=== PATIENT | female | born 1955 | race Caucasian/White ===

== ENCOUNTER → 2016-04-15 | Outpatient (REF) | payer OTHER | LOC: M SFHCWAGY 10:34 | PROVIDERS: ATTEND Nurse Practitioner Family | DX: Z12.72 Encounter for screening for malignant neoplasm of vagina (principal); R23.4 Changes in skin texture ==

== ENCOUNTER → 2016-04-15 | Outpatient (CLI) | payer OTHER ==
--- NOTE | 2016-04-15 12:37 | REPMRS ---
Patient History The patient states she had a clinical breast exam in Patient is postmenopausal, has history of endometrial cancer at age 53, has history of ovarian cancer at age 53, and is nulliparous. Family history of endometrial cancer in maternal aunt. Digital Woman Screen Mammo: April 15, 2016 - Exam #: [id number] Bilateral CC and MLO view(s) were taken. Technologist: Adrienne Seymour, Technologist Prior study comparison: April 15, 2015, digital woman screen mammo performed at [facility]. April 14, 2014, digital woman screen mammo performed at [facility]. FINDINGS: There are scattered fibroglandular densities. There has been no change in the appearance of the mammogram from the prior studies. There is a mild amount of residual fibroglandular tissue which is fairly symmetric. There is no interval development of dominant mass, architectural distortion, or clustered microcalcification suggestive of malignancy. ASSESSMENT: BI-RADS/ACR category 1 mammogram. Negative. Recommendation Routine screening mammogram in 1 year (for women over age 40). This mammogram was interpreted with the aid of an FDA-approved computer-aided dectection system. Electronically Signed By: Justyn Murguia MD 04/15/16 [id number]
== END ==
LOC: M WHC 10:09
PROVIDERS: ATTEND Nurse Practitioner Family
DX: Z12.31 Encounter for screening mammogram for malignant neoplasm of breast (principal); Z78.0 Asymptomatic menopausal state; Z85.44 Personal history of malignant neoplasm of other female genital organs; Z85.43 Personal history of malignant neoplasm of ovary

== ENCOUNTER → 2017-07-10 | Outpatient (REF) | payer OTHER | LOC: M SFHCWAGY 11:30 | DX: Z12.4 Encounter for screening for malignant neoplasm of cervix (principal) ==

== ENCOUNTER → 2017-07-12 | Outpatient (REF) | payer OTHER | LOC: M LAB REF 13:46 | DX: C50.919 Malignant neoplasm of unspecified site of unspecified female breast (principal) ==

== ENCOUNTER → 2017-09-05 | Outpatient (CLI) | payer OTHER | LOC: M ONCR 09:07 | DX: C50.912 Malignant neoplasm of unspecified site of left female breast (principal) | CPT/HCPCS: G0463 ==

== ENCOUNTER → 2017-09-25 | Outpatient (REF) | payer OTHER ==
[2017-09-25 17:45] LABS: INR 0.98; PROTHROMBIN TIME 13.1 SECONDS (12.1-14.4)
[2017-09-25 17:46] LABS: PARTIAL THROMBOPLASTIN TIME 32.6 SECONDS (25.4-37.6)
== END ==
LOC: M LAB REF 16:33
DX: Z79.811 Long term (current) use of aromatase inhibitors (principal); C50.412 Malignant neoplasm of upper-outer quadrant of left female breast

== ENCOUNTER → 2017-09-27 | Outpatient (CLI) | payer OTHER | LOC: M WHC 08:00 | DX: C50.919 Malignant neoplasm of unspecified site of unspecified female breast (principal); M85.851 Other specified disorders of bone density and structure, right thigh; M85.852 Other specified disorders of bone density and structure, left thigh | CPT/HCPCS: 77080 ==

== ENCOUNTER 2017-10-13 11:49 | Outpatient (RCR) | payer OTHER | END 2017-11-05 | LOC: M ONCR 11:49 | DX: C50.412 Malignant neoplasm of upper-outer quadrant of left female breast (principal) | CPT/HCPCS: 77300 ==

== ENCOUNTER 2017-11-29 11:53 | Outpatient (RCR) | payer OTHER ==
--- NOTE | 2017-11-07 11:29 | RADONC ---
RADIATION ONCOLOGY PROGRESS NOTE: DATE: 11/06/2017 CHART NUMBER: [id number] Ms. English is presently at a dose of 2520 cGy to her left breast and is tolerating treatments quite well at this point with no significant difficulties related to her radiation therapy other than some skin irritation. REVIEW OF SYSTEMS: The patient's review of systems is positive for some skin irritation, but is otherwise noncontributory. She denies nausea, vomiting, fevers, chills, night sweats, diplopia, headaches, anxiety or depression, anorexia, weight loss, visual disturbances, chest pain, urinary or bowel difficulties, bone pain, or neurological problems.. PHYSICAL EXAMINATION: The patient's skin is in good condition with no evidence of moist or dry desquamation. The remainder of her physical exam remains unchanged. Ms. English has been tolerating treatments quite well and radiation will continue as scheduled.
--- NOTE | 2017-11-15 07:46 | RADONC ---
RADIATION ONCOLOGY PROGRESS NOTE DATE: 11/13/2017 CHART NUMBER: [id number] Ms. English is presently at a dose of 3420 cGy to her left breast and is tolerating treatments quite well at this point with no significant difficulties related to her radiation therapy. She is having no breast or bone pain. The patient's review of systems is noncontributory. She denies nausea, vomiting, fevers, chills, night sweats, diplopia, headaches, anxiety or depression, anorexia, weight loss, visual disturbances, chest pain, urinary or bowel difficulties, bone pain, or neurological problems. PHYSICAL EXAMINATION: The patient's skin is in good condition with no evidence of moist or dry desquamation. There is some erythema present. The remainder of her physical exam remains unchanged. Ms. English is tolerating treatments quite well and radiation will continue as scheduled.
--- NOTE | 2017-11-21 08:40 | RADONC ---
RADIATION ONCOLOGY SIMULATION NOTE DATE: 11/20/2017 CHART NUMBER: [id number] Ms. English was taken to the linear accelerator today for clinical setup of her left breast primary site electron beam boost field. Setup was accomplished without difficulty or discomfort. Radiation treatment planning is underway and radiation treatments will begin subsequently. An immobilization device was created and will be used throughout the course of treatment. I was physically present throughout the clinical setup simulation.
--- NOTE | 2017-11-21 08:41 | RADONC ---
RADIATION ONCOLOGY PROGRESS NOTE DATE: 11/20/2017 CHART NUMBER: [id number] Ms. English is presently at a dose of 4140 cGy to her left breast and is tolerating treatments quite well at this point with no complaints related to her radiation therapy. She is having no breast or bone pain. The patient's review of systems is noncontributory. Denies nausea, vomiting, fevers, chills, night sweats, diplopia, headaches, anxiety or depression, anorexia, weight loss, visual disturbances, chest pain, urinary or bowel difficulties, bone pain, or neurological problems. PHYSICAL EXAMINATION The patient's skin is in good condition with no evidence of moist or dry desquamation. The remainder of her physical exam remains unchanged. Ms. English is tolerating treatments quite well and radiation will continue as scheduled.
--- NOTE | 2017-11-28 11:18 | RADONC ---
RADIATION ONCOLOGY PROGRESS NOTE DATE: 11/27/2017 CHART #: [id number] Ms. English is presently at a dose of 5280 cGy to her left breast primary site boost and is tolerating treatments quite well at this point with no complaints related to her radiation therapy. She is having no breast or bone pain. REVIEW OF SYSTEMS: The patient's review of systems is noncontributory. Denies nausea, vomiting, fevers, chills, night sweats, diplopia, headaches, anxiety or depression, anorexia, weight loss, visual disturbances, chest pain, urinary or bowel difficulties, bone pain, or neurological problems. PHYSICAL EXAMINATION: The patient's skin is in good condition with no evidence of moist or dry desquamation. The remainder of her physical exam remains unchanged. Ms. English is tolerating treatments quite well and radiation will continue as scheduled.
[~2017-11-29 11:53] MED LIST: ANAS1TAB2 PO; ASPI81TA85 PO; BIMA01SOL OU; HYZA50TA2 PO; IMOD2CAP PO; JANU50TA25 PO; LOSA-4 PO; MULT1TAB10 PO; TYLE325T5 PO
--- NOTE | 2017-12-02 10:29 | RADONC ---
RADIATION ONCOLOGY TREATMENT SUMMARY DATE: 11/30/2017 CHART #: [id number] DIAGNOSIS: Left breast cancer. STAGE: I A, T2, N0 (i+n) M0, grade 2, ER positive, NJ positive, HER2 negative. ECOG PERFORMANCE STATUS: 0. TREATMENT SUMMARY: Ms. English is a delightful 62-year-old white female with the diagnosis of a stage I A,T2, N0, (i+n) M0, moderately differentiated invasive ductal carcinoma of the left breast who presented to us status post lumpectomy and sentinel lymph node biopsy for consideration of postoperative radiation therapy for conservative breast management. We treated the patient to her left breast for a total dose of 4680 cGy delivered in 26 fractions of 180 cGy each over 36 elapsed days from 10/17/2017 through 11/22/2017. The patient's left breast was treated on a linear accelerator utilizing a 3-D conformal technique with a combination of 18 X and 6 X photons via medial and lateral tangential nicole. In addition, we treated the patient's left supraclavicular and axillary region for a dose of 4680 cGy, again in 26 fractions of 180 cGy each. 3-D conformal technique was utilized with an anterior oblique field angled away from the spinal column and a posterior axillary field. 18 MV photons were used with a posterior field in 5 X photons were used with the anterior field. Following completion of 4680 cGy to the entire region, the primary site was boosted for an additional 1000 cGy delivered in five fractions of 200 cGy each from 11/23/2017 through 11/29/2017. The primary site boost was treated on a linear accelerator utilizing a 12 MEV electron beam prescribed to the 90% isodose line via a non phos technique. This brought the primary site to a total dose of 5860 cGy delivered in 31 fractions over 43 elapsed days from 10/17/2017 through 11/29/2017. Ms. English tolerated her treatments quite well and was able complete therapy as prescribed without interruption. I have scheduled the patient to see me again in 1 month for further followup. She will also continue to be followed by her other physicians as well. Thank you for allowing us to participate in the care of this very pleasant woman. If I could be of any further assistance or provide you with any information, please free to contact me at anytime. As always warm regards. cc: Jolie Lopes MD, FACP MD Yisel St MD
[2017-12-26] MEDS ORDERED: LETR2.5T2 PO ×2 (11:57→12:19)
== END 2017-12-06 ==
LOC: M ONCR 11:53
PROVIDERS: ATTEND Radiology Radiation Oncology
DX: C50.412 Malignant neoplasm of upper-outer quadrant of left female breast (principal)

== ENCOUNTER → 2017-12-26 | Outpatient (CLI) | payer OTHER | LOC: M ONCR 10:56 | DX: C50.412 Malignant neoplasm of upper-outer quadrant of left female breast (principal) | CPT/HCPCS: G0463 ==

== ENCOUNTER → 2018-03-29 | Outpatient (CLI) | payer OTHER ==
[~2018-03-29] MED LIST changes: +CALCTAB6 PO; +LETR2.5T2 PO; -LOSA-4 PO; +LOSA100T50 PO; +SIMB1SUS OP
--- NOTE | 2018-03-29 07:42 | REP ---
Clinical: History of breast cancer with hepatomegaly. Technique: Real time shipman scale ultrasound examination using curved array transducer. Findings: The liver is heterogeneous raising the possibility of hepatocellular disease. No focal hepatic lesion identified. Pancreas is incompletely evaluated due to interposed bowel gas. Spleen is grossly unremarkable in appearance and size. The gallbladder is normal and without gallstones, wall thickening, or pericholecystic fluid. No biliary ductal dilatation is appreciated and the common bile duct measures 5.1 mm diameter. The bilateral kidneys are normal in reniform shape without hydronephrosis. Right kidney measures 11.7 x 6.4 x 5.5 cm. Left kidney measures 12.7 x 5.6 x 6.0 cm and includes 5 mm nonobstructing calculus. No ascites. Abdominal aorta incompletely evaluated due to interposed bowel gas. Impression: 1. Heterogeneous mildly enlarged liver coarsened echotexture, but no focal hepatic lesion identified. 2. 5 mm nonobstructing left intrarenal calculus. 3. No ascites. Electronically Signed by David Hebert MD 03/29/2018 07:33 A
== END ==
LOC: M RAD 06:51
PROVIDERS: ATTEND Internal Medicine Hematology & Oncology
DX: C50.919 Malignant neoplasm of unspecified site of unspecified female breast (principal); R16.2 Hepatomegaly with splenomegaly, not elsewhere classified

== ENCOUNTER 2018-04-03 15:37 | Outpatient (RCR) | payer OTHER | END 2018-04-05 | LOC: M PT 15:37 | PROVIDERS: ATTEND Registered Nurse | DX: C50.112 Malignant neoplasm of central portion of left female breast (principal); Z17.0 Estrogen receptor positive status [ER+]; Z98.890 Other specified postprocedural states ==

== ENCOUNTER 2018-04-24 15:43 | Outpatient (RCR) | payer OTHER | END 2018-05-06 | LOC: M PT 15:43 | PROVIDERS: ATTEND Registered Nurse | DX: I89.0 Lymphedema, not elsewhere classified (principal) ==

== ENCOUNTER → 2018-05-04 | Outpatient (REF) | payer OTHER | LOC: M LAB REF 17:20 | PROVIDERS: ATTEND Physician Assistant Medical | DX: N39.0 Urinary tract infection, site not specified (principal) ==

== ENCOUNTER → 2018-06-27 | Outpatient (CLI) | payer OTHER ==
--- NOTE | 2018-07-01 14:07 | RADONC ---
RADIATION ONCOLOGY FOLLOWUP NOTE DATE: 06/27/2018 CHART #: [id number] DIAGNOSIS: Left breast cancer. STAGE: I A, T2, N1 (i+n) M0, grade 2, ER positive, VT positive, HER2/remberto negative. ECOG PERFORMANCE STATUS: 0. FOLLOWUP NOTE: Ms. English is a very pleasant 62-year-old white female with the diagnosis of a stage I A, T2N0 (i+n) M0, moderately differentiated invasive ductal carcinoma of the left breast who is presenting to us today for routine followup visit 8 months post completion of external beam radiation therapy. The patient presents today reporting that she is doing quite well with no complaints at this time related to her radiation therapy or disease. She has no breast or bone pain. REVIEW OF SYSTEMS: The patient's review of systems is noncontributory. Denies nausea, vomiting, fevers, chills, night sweats, diplopia, headaches, anxiety or depression, anorexia, weight loss, visual disturbances, chest pain, urinary or bowel difficulties, bone pain, or neurological problems. PHYSICAL EXAMINATION: The patient is a well-developed, well-nourished, 62year-old female in no acute distress. HEENT exam is normocephalic, atraumatic. Extraocular movements are intact. There is no palpable cervical, supraclavicular, infraclavicular, axillary, or inguinal lymphadenopathy present. Lungs are clear to auscultation and percussion. Heart has a regular rate and rhythm. Abdomen is benign with no hepatosplenomegaly, masses, or tenderness. Breast examination reveals no masses or discharge bilaterally. Skeletal examination reveals no tenderness to pressure or percussion of the bony skeleton. Extremities reveal no clubbing, cyanosis, or edema. Neurologic exam is grossly intact, as is the remainder of the physical examination. ASSESSMENT: The patient is clinically JOHAN at this time. Since she is being followed and managed so closely by her other physicians, she is being discharged from our followup except on a p.r.n. basis. cc: MD Yisel St MD Sara McGee, MD
== END ==
LOC: M ONCR 10:37
PROVIDERS: ATTEND Radiology Radiation Oncology
DX: Z85.3 Personal history of malignant neoplasm of breast (principal); Z82.3 Family history of stroke

== ENCOUNTER → 2018-07-03 | Outpatient (REF) | payer OTHER | LOC: M LAB REF 19:32 | PROVIDERS: ATTEND Physician Assistant Medical | DX: R30.0 Dysuria (principal) ==

== ENCOUNTER → 2018-07-12 | Outpatient (REF) | payer OTHER | LOC: M SFHCWAGY 12:07 | PROVIDERS: ATTEND Nurse Practitioner Family | DX: Z08 Encounter for follow-up examination after completed treatment for malignant neoplasm (principal); Z85.42 Personal history of malignant neoplasm of other parts of uterus ==

== ENCOUNTER → 2018-08-17 | Outpatient (REF) | payer OTHER ==
[2018-08-17 12:34] LABS: ALBUMIN 3.4 GM/DL (3.2-5.2); ALT/SGPT 46 U/L (12-78); BILIRUBIN,DIRECT < 0.1 MG/DL (0.0-0.2); BILIRUBIN,TOTAL 0.2 MG/DL (0.2-1.0); CHOLESTEROL LEVEL 179 MG/DL (<200); CHOLESTEROL RISK RATIO 4.261 (<5); FERRITIN 132 NG/ML (8-252); HDL CHOLESTEROL 42 MG/DL (>40); IRON (FE) 56 UG/DL (50-170); LDL CHOLESTEROL 84 MG/DL (<100); NON-HDL-C 137 MG/DL; PERCENT SATURATION 16.7 % (13.2-45.0); TOTAL IRON BINDING CAPACITY 335 UG/DL (250-450); TOTAL PROTEIN 6.8 GM/DL (6.4-8.2); TRIGLYCERIDES LEVEL 264 MG/DL (<150)
[2018-08-17 12:35] LABS: HEPATITIS B SURFACE ANTIBODY NEGATIVE (POSITIVE)
[2018-08-17 12:46] LABS: HEPATITIS B SURFACE ANTIGEN NEGATIVE (NEGATIVE)
[2018-08-17 13:14] LABS: HEPATITIS C VIRUS ABY INDEX 0.1 INDEX (<0.8)
[2018-08-19 00:06] LABS: ANTI DOUBLE STRAND-DNA AB 1 IU/mL (0-9); ANTI-MITOCHONDRIAL ANTIBODY <20.0 Units (0.0-20.0); ANTI-SMOOTH MUSCLE ANTIBODY 6 Units (0-19); ANTINUCLEAR ANTIBODIES DIRECT Positive (Negative); HEPATITIS A IgG TOTAL Positive (Negative); LIVER-KIDNEY MICROSOMAL ABY <20.1 Units (0.0-20.0); RNP ANTIBODIES <0.2 AI (0.0-0.9); SJOGREN'S ANTI SS-A <0.2 AI (0.0-0.9); SJOGREN'S ANTI SS-B <0.2 AI (0.0-0.9); SMITH ANTIBODIES <0.2 AI (0.0-0.9)
== END ==
LOC: M LABDRAW1 07:44
PROVIDERS: ATTEND Internal Medicine Gastroenterology
DX: R16.0 Hepatomegaly, not elsewhere classified (principal)

== ENCOUNTER → 2018-09-07 | Outpatient (CLI) | payer OTHER ==
--- NOTE | 2018-09-07 08:11 | REP ---
Clinical: Hepatic steatosis. Hepatomegaly. Technique: Real time shipman scale ultrasound examination using curved array transducer. Comparison: 03/29/2018 Findings: Liver is mildly enlarged measuring 19.5 cm craniocaudal length and hyperechoic without focal hepatic lesion identified. Pancreas is normal. Gallbladder is unremarkable and without gallstones, wall thickening, or pericholecystic fluid. No biliary ductal dilatation is appreciated and the common bile duct measures 4.1 mm diameter. The right kidney is normal in reniform shape without hydronephrosis and measures 10.6 x 6.8 x 5.8 cm. No ascites. Impression: Mild hepatomegaly and hepatic steatosis. Electronically Signed by David Hebert MD 09/07/2018 08:03 A
== END ==
LOC: M RAD 06:27
PROVIDERS: ATTEND Internal Medicine Gastroenterology
DX: K76.0 Fatty (change of) liver, not elsewhere classified (principal); R16.0 Hepatomegaly, not elsewhere classified

== ENCOUNTER → 2018-11-09 | Outpatient (REF) | payer OTHER | LOC: M LAB REF 08:59 | PROVIDERS: ATTEND Physician Assistant Medical | DX: R31.9 Hematuria, unspecified (principal) ==

== ENCOUNTER → 2019-07-15 | Outpatient (REF) | payer OTHER ==
[~2019-07-15] MED LIST changes: +APAP325T4 PO; +B-1100TA2 PO; +JANU50TA4 PO; +LOPE-39 PO; +MELA5CAP2 PO; +MULTCAP PO; +VITA-157 PO
== END ==
LOC: M SFHCWAGY 18:11
PROVIDERS: ATTEND Nurse Practitioner Family
DX: Z08 Encounter for follow-up examination after completed treatment for malignant neoplasm (principal)

== ENCOUNTER → 2019-07-15 | Outpatient (CLI) | payer OTHER ==
[2019-07-15 14:06] LABS: HEMATOCRIT 44.1 % (36.0-47.0); HEMOGLOBIN 14.5 g/dl (12.0-15.5); MEAN CORPUSCULAR HEMOGLOBIN 30.6 pg (27.0-33.0); MEAN CORPUSCULAR HGB CONC 32.9 g/dl (32.0-36.5); PLATELET COUNT, AUTOMATED 238 10^3/uL (150-450); RED BLOOD COUNT 4.74 10^6/uL (4.00-5.40); WHITE BLOOD COUNT 8.6 10^3/uL (4.0-10.0)
[2019-07-15 14:10] LABS: ALBUMIN 3.6 GM/DL (3.2-5.2); ALT/SGPT 43 U/L (12-78); BILIRUBIN,TOTAL 0.3 MG/DL (0.2-1.0); BLOOD UREA NITROGEN 14 MG/DL (7-18); CALCIUM LEVEL 9.2 MG/DL (8.8-10.2); CARBON DIOXIDE LEVEL 30 MEQ/L (21-32); CHLORIDE LEVEL 103 MEQ/L (98-107); CHOLESTEROL LEVEL 279 MG/DL (<200); CHOLESTEROL RISK RATIO 5.812 (<5); CREATININE FOR GFR 0.94 MG/DL (0.55-1.30); GLOMERULAR FILTRATION RATE > 60.0 (>45); GLUCOSE, FASTING 142 MG/DL (70-100); HDL CHOLESTEROL 48 MG/DL (>40); NON-HDL-C 231 MG/DL; POTASSIUM SERUM 4.3 MEQ/L (3.5-5.1); SODIUM LEVEL 139 MEQ/L (136-145); TOTAL PROTEIN 7.1 GM/DL (6.4-8.2); TRIGLYCERIDES LEVEL 466 MG/DL (<150)
[2019-07-15 14:37] LABS: HEMOGLOBIN A1c 8.3 %
[2019-07-15 18:18] LABS: MALB URINE SIEMENS 11.3 MG/L; MAU/CREAT RATIO 8.5 MCG/MG (0.0-30.0)
== END ==
LOC: M PLALAB 11:48
PROVIDERS: ATTEND Family Medicine
DX: E11.9 Type 2 diabetes mellitus without complications (principal)

== ENCOUNTER → 2019-07-25 | Outpatient (CLI) | payer OTHER ==
[~2019-07-25] MED LIST changes: +ALEN10TA5 PO; -ASPI81TA85 PO; +ASPI81TA86 PO; +CALC600T63 PO; -CALCTAB6 PO; +DITR5TAB PO
--- NOTE | 2019-08-05 14:02 | DEXA ---
AP SPINE L1 - L4 1.275 0.7 2.1 LT FEMUR TOTAL 0.851 -1.2 -0.2 LT NECK 0.830 -1.5 -0.1 RT FEMUR TOTAL 0.936 -0.6 0.5 RT NECK 0.827 -1.5 -0.2 TOTAL BODY TOTAL OTHER COMMENTS: Normal bone densitometry of the spine. There is low bone density of the hips. The density of the spine has decreased 4.5% since the initial exam on 04/10/2012. The decreased 4.9% since the most recent exam on 09/27/2017. The density of the left hip has decreased 23.5% since the initial exam on 04/10/2012. The density of the left hip has decreased 17.7% since the most recent exam on 09/27/2017. The density of the right hip has decreased 14.1% since the initial exam on 04/10/2012. The density of the right hip has decreased 12.4% since the most recent exam on 09/27/2017. FOLLOW-UP: Recommendation for the next bone density exam: 2 years. WING
== END ==
LOC: M WHC 09:40
PROVIDERS: ATTEND Internal Medicine Hematology & Oncology
DX: C50.912 Malignant neoplasm of unspecified site of left female breast (principal); Z79.811 Long term (current) use of aromatase inhibitors; Z90.722 Acquired absence of ovaries, bilateral

== ENCOUNTER → 2020-02-12 | Outpatient (CLI) | payer OTHER ==
[2020-02-12 13:06] LABS: HEMATOCRIT 42.7 % (36.0-47.0); HEMOGLOBIN 13.4 g/dl (12.0-15.5); MEAN CORPUSCULAR HEMOGLOBIN 28.6 pg (27.0-33.0); MEAN CORPUSCULAR HGB CONC 31.4 g/dl (32.0-36.5); MEAN CORPUSCULAR VOLUME 91.2 fl (80.0-96.0); PLATELET COUNT, AUTOMATED 248 10^3/uL (150-450); RED BLOOD COUNT 4.68 10^6/uL (4.00-5.40); WHITE BLOOD COUNT 7.7 10^3/uL (4.0-10.0)
[2020-02-12 13:25] LABS: HEMOGLOBIN A1c 9.7 %
[2020-02-12 13:41] LABS: ALBUMIN 3.6 GM/DL (3.2-5.2); ALT/SGPT 38 U/L (12-78); BILIRUBIN,TOTAL 0.3 MG/DL (0.2-1.0); BLOOD UREA NITROGEN 16 MG/DL (7-18); CALCIUM LEVEL 9.2 MG/DL (8.8-10.2); CARBON DIOXIDE LEVEL 27 MEQ/L (21-32); CHLORIDE LEVEL 101 MEQ/L (98-107); CHOLESTEROL LEVEL 292 MG/DL (<200); CHOLESTEROL RISK RATIO 6.212 (<5); GLOMERULAR FILTRATION RATE 59.6 (>45); GLUCOSE, FASTING 317 MG/DL (70-100); HDL CHOLESTEROL 47 MG/DL (>40); NON-HDL-C 245 MG/DL; POTASSIUM SERUM 4.4 MEQ/L (3.5-5.1); SODIUM LEVEL 135 MEQ/L (136-145); TOTAL PROTEIN 7.1 GM/DL (6.4-8.2); TRIGLYCERIDES LEVEL 587 MG/DL (<150)
== END ==
LOC: M PLALAB 10:05
PROVIDERS: ATTEND Family Medicine
DX: E11.9 Type 2 diabetes mellitus without complications (principal)

== ENCOUNTER → 2020-07-03 | Outpatient (CLI) | payer BC, OTHER ==
[~2020-07-03] MED LIST changes: +METF10004 PO; +MULT-90 PO; +TRUL10IN SC; -VITA-157 PO; +VITAE40CA PO
== END ==
LOC: M LABSMTC 12:32
PROVIDERS: ATTEND Anesthesiology
DX: Z01.812 Encounter for preprocedural laboratory examination (principal); Z11.52 Encounter for screening for COVID-19

== ENCOUNTER 2020-07-08 12:07 | Day surgery (SDC) | payer BC ==
[~2020-07-08] VITALS: Ht 165.1 cm; Wt 113.9 kg
[~2020-07-08 12:07] MED LIST changes: +NS 1,000 ML IV ONE
[2020-07-08] MEDS ORDERED: propofoL 200 MG/20 ML VIAL As Ordered ONE ×2 (14:46→14:51)
[2020-07-08] MEDS ORDERED: LIDOCAINE 2% 100MG/5ML SDV (FOR ANES.) As Ordered ONE (14:46)
--- NOTE | 2020-07-08 15:27 | ROOR ---
Patient Name: Ninfa English Procedure Date: 07/08/2020 2:55 PM Date of : 1955 Age: 64 Room: [facility] Gender: Female Note Status: Finalized Procedure: Total Colonoscopy to Cecum + Cold Snare Polypectomy + Hemoclips Indications: High risk colon cancer surveillance: Personal history of colonic polyps, Last colonoscopy: 2017 Providers: Janusz Christy MD Referring MD: Pérez Montgomery MD Requesting Provider: Medicines: Monitored Anesthesia Care Complications: No immediate complications. Procedure: Pre-Anesthesia Assessment: - The heart rate, respiratory rate, oxygen saturations, blood pressure, adequacy of pulmonary ventilation, and response to care were monitored throughout the procedure. The Colonoscope was introduced through the anus and advanced to the cecum, identified by appendiceal orifice and ileocecal valve. The colonoscopy was performed without difficulty. The patient tolerated the procedure well. The quality of the bowel preparation was excellent. Findings: The perianal and digital rectal examinations were normal. Non-bleeding internal hemorrhoids were found during retroflexion. The hemorrhoids were small and Grade I (internal hemorrhoids that do not prolapse). Multiple small and large-mouthed diverticula were found in the recto-sigmoid colon, sigmoid colon and descending colon. Multiple sessile polyps were found in the ascending colon. The polyps were small in size. These polyps were removed with a cold snare. Resection and retrieval were complete. To prevent bleeding after the polypectomy, one hemostatic clip was successfully placed (MR conditional). There was no bleeding at the end of the procedure. The exam was otherwise without abnormality on direct and retroflexion views. Impression: - Non-bleeding internal hemorrhoids. - Diverticulosis in the recto-sigmoid colon, in the sigmoid colon and in the descending colon. - Multiple small polyps in the ascending colon, removed with a cold snare. Resected and retrieved. Clip (MR conditional) was placed. - The examination was otherwise normal on direct and retroflexion views. - The exam was otherwise normal to the cecum. Recommendation: - Patient has a contact number available for emergencies. The signs and symptoms of potential delayed complications were discussed with the patient. Return to normal activities tomorrow. Written discharge instructions were provided to the patient. - High fiber diet. - Discharge patient to home. - Continue present medications. - Await pathology results. - Telephone GI clinic for pathology results in 1 week. - Repeat colonoscopy in 5 years for surveillance. - Return to referring physician. - The findings and recommendations were discussed with the patient's family. Procedure Code(s): --- Professional --- 07960, Colonoscopy, flexible; with removal of tumor(s), polyp(s), or other lesion(s) by snare technique Diagnosis Code(s): --- Professional --- Z86.010, Personal history of colonic polyps K64.0, First degree hemorrhoids K63.5, Polyp of colon K57.30, Diverticulosis of large intestine without perforation or abscess without bleeding CPT copyright 2019 [employer]. All rights reserved. The codes documented in this report are preliminary and upon business systems administrator review may be revised to meet current compliance requirements. Janusz Christy MD Janusz Christy MD 07/08/2020 3:26:54 PM Electronically signed by Janusz Christy MD Number of Addenda: 0 Note Initiated On: 07/08/2020 2:55 PM Estimated Blood Loss: Estimated blood loss: none.
[2020-07-08 15:40] VITALS: BP 137/69
== END 2020-07-08 15:49 | disposition home or self-care (01) ==
LOC: M OPP 12:07
PROVIDERS: ATTEND Internal Medicine Gastroenterology
DX: Z12.11 Encounter for screening for malignant neoplasm of colon (principal); Z86.010 Personal history of colon polyps; D12.2 Benign neoplasm of ascending colon; K57.30 Diverticulosis of large intestine without perforation or abscess without bleeding; K64.0 First degree hemorrhoids; Z79.84 Long term (current) use of oral hypoglycemic drugs; Z79.899 Other long term (current) drug therapy; Z88.0 Allergy status to penicillin; Z88.8 Allergy status to other drugs, medicaments and biological substances; Z91.040 Latex allergy status; Z85.42 Personal history of malignant neoplasm of other parts of uterus

== ENCOUNTER → 2020-07-15 | Outpatient (REF) | payer BC ==
[~2020-07-15] MED LIST changes: -NS 1,000 ML IV ONE
== END ==
LOC: M SFHCWAGY 10:12
PROVIDERS: ATTEND Nurse Practitioner Women's Health
DX: Z12.72 Encounter for screening for malignant neoplasm of vagina (principal); Z01.419 Encounter for gynecological examination (general) (routine) without abnormal findings

== ENCOUNTER 2020-10-18 07:39 | Emergency (ER) | payer BC, OTHER ==
[~2020-10-18] VITALS: Ht 165.1 cm; Wt 112.3 kg
[~2020-10-18 07:39] MED LIST changes: +FERR325T3 PO
[2020-10-18] MEDS ORDERED: KETOROLAC 30 MG/ML 1ML VIAL IV ONE (08:20)
[2020-10-18] MEDS ORDERED: NS 1,000 ML IV ONE (08:20)
[2020-10-18 08:58] LABS: BASO # 0.1 10^3/uL (0.0-0.2); BASO % 0.6 % (0.0-1.0); EOS # 0.1 10^3/uL (0.0-0.5); EOS % 1.1 % (0.0-3.0); HEMATOCRIT 39.3 % (36.0-47.0); HEMOGLOBIN 12.6 g/dl (12.0-15.5); LYMPH # 1.7 10^3/uL (1.5-5.0); LYMPH % 21.5 % (24.0-44.0); MEAN CORPUSCULAR HEMOGLOBIN 28.6 pg (27.0-33.0); MEAN CORPUSCULAR HGB CONC 32.1 g/dl (32.0-36.5); MEAN CORPUSCULAR VOLUME 89.1 fl (80.0-96.0); MONO # 0.6 10^3/uL (0.0-0.8); MONO % 7.9 % (2.0-8.0); NEUTROPHILS # 5.5 10^3/uL (1.5-8.5); PLATELET COUNT, AUTOMATED 270 10^3/uL (150-450); RED BLOOD COUNT 4.41 10^6/uL (4.00-5.40); WHITE BLOOD COUNT 8.1 10^3/uL (4.0-10.0)
[2020-10-18 09:29] LABS: ALBUMIN 3.3 GM/DL (3.2-5.2); ALT/SGPT 35 U/L (12-78); BILIRUBIN,DIRECT < 0.1 MG/DL (0.0-0.2); BILIRUBIN,TOTAL 0.3 MG/DL (0.2-1.0); LIPASE 161 U/L (73-393); TOTAL PROTEIN 7.3 GM/DL (6.4-8.2)
--- NOTE | 2020-10-18 10:35 | REP ---
INDICATION: right flank pain COMPARISON: None. TECHNIQUE: CT Scan of the abdomen and pelvis was performed without intravenous contrast. Sagittal and coronal reconstruction images performed. FINDINGS: Lung bases: There is mild elevation of the right hemidiaphragm with adjacent right base fibro atelectatic change. Liver: There is diffuse fatty infiltration of the liver. The liver measures approximately 18 cm in length compatible with mild hepatomegaly. Gallbladder: Unremarkable. Spleen: Grossly unremarkable. Adrenals: Normal. Pancreas: Grossly unremarkable.. Kidneys: No hydronephrosis or nephrolithiasis. Ureters demonstrate no dilatation or calculus. Small and large bowel: Grossly unremarkable. Free fluid: None. Abdominal aorta: No aneurysm. Adenopathy: None. Appendix: Not inflamed. Osseous structures: There are mild degenerative changes of the spine without compression deformity. Pelvis: No mass. No bladder calculus seen. Prior hysterectomy. A small umbilical hernia contains noninflamed fat. IMPRESSION: Diffuse fatty infiltration of the liver with mild hepatomegaly. No acute findings in the abdomen or pelvis. <Electronically signed by Justyn Murguia > 10/18/20 [id number]
[2020-10-18 11:19] VITALS: BP 144/77
[2020-11-03] MEDS ORDERED: DITR5TAB PO (15:58)
== END 2020-10-18 11:21 | disposition home or self-care (01) ==
LOC: M ED 07:39
DX: R10.9 Unspecified abdominal pain (principal); M54.5 Low back pain; E11.9 Type 2 diabetes mellitus without complications; I10 Essential (primary) hypertension; Z79.899 Other long term (current) drug therapy; Z79.84 Long term (current) use of oral hypoglycemic drugs; Z88.0 Allergy status to penicillin; Z88.8 Allergy status to other drugs, medicaments and biological substances; Z91.040 Latex allergy status
CPT/HCPCS: 74176; 80047; 80076; 81001; 83690; 85025; 87086; 96361; 96374; 99284; J1885

== ENCOUNTER → 2021-04-08 | Outpatient (CLI) | payer OTHER ==
[~2021-04-08] MED LIST changes: +LOSA100T45 PO; -LOSA100T50 PO
== END ==
LOC: M RAD 07:16
PROVIDERS: ATTEND Specialist
DX: N17.9 Acute kidney failure, unspecified (principal)

== ENCOUNTER → 2021-08-11 | Outpatient (CLI) | payer OTHER | LOC: M WHC 08:46 | PROVIDERS: ATTEND Internal Medicine Medical Oncology | DX: M85.851 Other specified disorders of bone density and structure, right thigh (principal); M85.852 Other specified disorders of bone density and structure, left thigh ==

== ENCOUNTER → 2021-08-11 | Outpatient (CLI) | payer OTHER ==
[2021-08-11 10:40] LABS: HEMOGLOBIN 11.8 g/dl (12.0-15.5); MEAN CORPUSCULAR HEMOGLOBIN 28.8 pg (27.0-33.0); MEAN CORPUSCULAR HGB CONC 31.1 g/dl (32.0-36.5); MEAN CORPUSCULAR VOLUME 92.7 fl (80.0-96.0); PLATELET COUNT, AUTOMATED 293 10^3/uL (150-450); WHITE BLOOD COUNT 9.1 10^3/uL (4.0-10.0)
[2021-08-11 10:41] LABS: ALBUMIN 3.2 GM/DL (3.2-5.2); ALT/SGPT 33 U/L (12-78); BILIRUBIN,TOTAL 0.2 MG/DL (0.2-1.0); BLOOD UREA NITROGEN 17 MG/DL (7-18); CALCIUM LEVEL 8.7 MG/DL (8.8-10.2); CARBON DIOXIDE LEVEL 26 MEQ/L (21-32); CHLORIDE LEVEL 107 MEQ/L (98-107); CHOLESTEROL LEVEL 239 MG/DL (<200); CHOLESTEROL RISK RATIO 5.085 (<5); CREATININE FOR GFR 0.98 MG/DL (0.55-1.30); GLOMERULAR FILTRATION RATE > 60.0 (>45); GLUCOSE, FASTING 197 MG/DL (70-100); HDL CHOLESTEROL 47 MG/DL (>40); NON-HDL-C 192 MG/DL; POTASSIUM SERUM 4.5 MEQ/L (3.5-5.1); SODIUM LEVEL 140 MEQ/L (136-145); TOTAL PROTEIN 6.8 GM/DL (6.4-8.2); TRIGLYCERIDES LEVEL 400 MG/DL (<150)
[2021-08-11 11:00] LABS: TOTAL 25(OH) VITAMIN D 30.5 NG/ML (30.0-100.0)
[2021-08-11 17:08] LABS: HEMOGLOBIN A1c 7.6 %
== END ==
LOC: M PLALAB 08:32
PROVIDERS: ATTEND Family Medicine
DX: M85.9 Disorder of bone density and structure, unspecified (principal)

== ENCOUNTER → 2021-11-29 | Outpatient (CLI) | payer MEDICARE, OTHER ==
[~2021-11-29] MED LIST changes: -HYZA50TA2 PO; +LOSA-532 PO
== END ==
LOC: M RAD 10:01
PROVIDERS: ATTEND Internal Medicine Medical Oncology
DX: C50.919 Malignant neoplasm of unspecified site of unspecified female breast (principal)
CPT/HCPCS: 78306; A9503

== ENCOUNTER 2022-02-22 11:31 | Emergency (ER) | payer OTHER ==
[~2022-02-22] VITALS: Ht 165.1 cm; Wt 111.4 kg
[2022-02-22] MEDS ORDERED: ASPIRIN 81MG CHEW TABLET PO ONE (12:30)
[2022-02-22] MEDS ORDERED: LABETALOL 100MG/20ML VIAL IV STA (12:41)
[2022-02-22 12:46] LABS: BASO % 0.3 % (0.0-1.0); EOS % 0.3 % (0.0-3.0); HEMATOCRIT 46.2 % (36.0-47.0); HEMOGLOBIN 15.2 g/dl (12.0-15.5); LYMPH # 1.6 10^3/uL (1.5-5.0); MEAN CORPUSCULAR HEMOGLOBIN 29.5 pg (27.0-33.0); MEAN CORPUSCULAR HGB CONC 32.9 g/dl (32.0-36.5); MEAN CORPUSCULAR VOLUME 89.5 fl (80.0-96.0); MONO # 0.8 10^3/uL (0.0-0.8); MONO % 7.8 % (2.0-8.0); NEUTROPHILS # 7.3 10^3/uL (1.5-8.5); NEUTROPHILS % 75.1 % (36.0-66.0); PLATELET COUNT, AUTOMATED 251 10^3/uL (150-450); RED BLOOD COUNT 5.16 10^6/uL (4.00-5.40); WHITE BLOOD COUNT 9.7 10^3/uL (4.0-10.0)
[2022-02-22 12:49] VITALS: BP 192/88
[2022-02-22 12:59] LABS: INR 0.97; PROTHROMBIN TIME 13.1 SECONDS (12.5-14.5)
[2022-02-22 13:00] LABS: PARTIAL THROMBOPLASTIN TIME 28.8 SECONDS (24.8-34.2)
[2022-02-22 13:10] LABS: LIPASE 38 U/L (12-53)
[2022-02-22 13:12] LABS: ALBUMIN 3.5 G/DL (3.2-5.2); ALKALINE PHOSPHATASE 71 U/L (46-116); ALT/SGPT 43 U/L (7.0-40); AST/SGOT 46 U/L (<34); BILIRUBIN,DIRECT < 0.1 MG/DL (<0.4); BILIRUBIN,TOTAL 0.3 MG/DL (0.3-1.2); BLOOD UREA NITROGEN 16 MG/DL (9-23); CALCIUM LEVEL 10.1 MG/DL (8.3-10.6); CARBON DIOXIDE LEVEL 25 MMOL/L (20-31); CHLORIDE LEVEL 100 MMOL/L (98-107); CREATININE FOR GFR 0.86 MG/DL (0.55-1.30); GLOMERULAR FILTRATION RATE > 60.0 (>45); GLUCOSE, FASTING 196 MG/DL (74-106); POTASSIUM SERUM 4.5 MMOL/L (3.5-5.1); SODIUM LEVEL 137 MMOL/L (136-145); TOTAL PROTEIN 7.3 G/DL (5.7-8.2)
[2022-02-22 13:14] LABS: THYROID STIMULATING HORMONE 1.931 uIU/ML (0.55-4.78)
[2022-02-22 13:15] LABS: FREE T4 1.09 NG/DL (0.89-1.76)
[2022-02-22 13:17] LABS: CPK CREATINE PHOSPHOKINASE 103 U/L (34-145); MB/CK RELATIVE INDEX 4.85 (< OR =4)
[2022-02-22] MEDS ORDERED: ISOVUE-370 76% 100ML VIAL As Ordered ONE (13:33)
[2022-02-22 14:27] LABS: CK-MB VALUE MASS 4.6 NG/ML (<3.6)
[2022-02-22 14:31] LABS: MB/CK RELATIVE INDEX 4.18 (< OR =4)
[2022-02-22 14:33] LABS: RSV AMPLIFICATION NEGATIVE (NEGATIVE)
[2022-02-22] MEDS ORDERED: HEPARIN SOD (PORCINE) 5000UNITS/ML 1ML VIAL/SYRINGE IV ONE (15:05)
[2022-02-22] MEDS ORDERED: HEPARIN DRIP 25,000 UNITS in IV 1 EA IV SCH (15:05)
[2022-02-22 16:20] VITALS: BP 178/92
== END 2022-02-22 16:44 | disposition short-term general hospital (02) ==
LOC: M ED 11:31
DX: I21.4 Non-ST elevation (NSTEMI) myocardial infarction (principal); I16.0 Hypertensive urgency; I10 Essential (primary) hypertension; E11.9 Type 2 diabetes mellitus without complications; Z85.44 Personal history of malignant neoplasm of other female genital organs; H40.9 Unspecified glaucoma; Z90.710 Acquired absence of both cervix and uterus; Z82.49 Family history of ischemic heart disease and other diseases of the circulatory system; Z88.0 Allergy status to penicillin; Z88.8 Allergy status to other drugs, medicaments and biological substances; Z91.040 Latex allergy status; Z79.899 Other long term (current) drug therapy; Z79.84 Long term (current) use of oral hypoglycemic drugs
CPT/HCPCS: 71046; 71275; 80048; 80076; 82550; 82553; 83690; 84439; 84443; 84484; 85025; 85610; 85730; 87631; 93005; 93041; 94760; 96365; 96375; 99285; Q9967

== ENCOUNTER 2022-08-04 14:26 | Emergency (ER) | payer OTHER, MEDICARE ==
[~2022-08-04] VITALS: Ht 165.1 cm; Wt 104.2 kg
[~2022-08-04 14:26] MED LIST changes: +ASPI81CH48; +CLOP75TA2; +EZET10TA21; -LOSA100T45 PO; +LOSA100T46 PO; +METO1TAB7
[2022-08-04 15:59] LABS: BASO # 0.1 10^3/uL (0.0-0.2); BASO % 0.5 % (0.0-1.0); EOS # 0.2 10^3/uL (0.0-0.5); EOS % 1.6 % (0.0-3.0); HEMOGLOBIN 14.4 g/dl (12.0-15.5); LYMPH # 1.7 10^3/uL (1.5-5.0); LYMPH % 17.1 % (24.0-44.0); MEAN CORPUSCULAR HEMOGLOBIN 29.9 pg (27.0-33.0); MEAN CORPUSCULAR HGB CONC 32.7 g/dl (32.0-36.5); MEAN CORPUSCULAR VOLUME 91.5 fl (80.0-96.0); MONO # 0.9 10^3/uL (0.0-0.8); MONO % 9.1 % (2.0-8.0); NEUTROPHILS % 71.3 % (36.0-66.0); PLATELET COUNT, AUTOMATED 241 10^3/uL (150-450); RED BLOOD COUNT 4.81 10^6/uL (4.00-5.40); WHITE BLOOD COUNT 9.8 10^3/uL (4.0-10.0)
[2022-08-04 16:23] LABS: CK-MB VALUE MASS < 1.0 NG/ML (<3.6); LIPASE 40 U/L (12-53)
[2022-08-04 16:26] LABS: ALBUMIN 3.5 G/DL (3.2-5.2); ALKALINE PHOSPHATASE 62 U/L (46-116); ALT/SGPT 25 U/L (7.0-40); AST/SGOT 12 U/L (<34); BILIRUBIN,DIRECT < 0.1 MG/DL (<0.4); BILIRUBIN,TOTAL 0.2 MG/DL (0.3-1.2); BLOOD UREA NITROGEN 20 MG/DL (9-23); CALCIUM LEVEL 8.8 MG/DL (8.3-10.6); CARBON DIOXIDE LEVEL 26 MMOL/L (20-31); CHLORIDE LEVEL 107 MMOL/L (98-107); CPK CREATINE PHOSPHOKINASE 78 U/L (34-145); CREATININE FOR GFR 0.87 MG/DL (0.55-1.30); GLOMERULAR FILTRATION RATE > 60.0 (>45); GLUCOSE, FASTING 99 MG/DL (74-106); MB/CK RELATIVE INDEX 1.28 (< OR =4); POTASSIUM SERUM 4.1 MMOL/L (3.5-5.1); SODIUM LEVEL 138 MMOL/L (136-145); TOTAL PROTEIN 6.9 G/DL (5.7-8.2)
[2022-08-04 16:28] LABS: FREE T4 0.75 NG/DL (0.89-1.76)
[2022-08-04] MEDS ORDERED: ISOVUE-370 76% 100ML VIAL As Ordered ONE (17:17)
[2022-08-04 17:33] LABS: CK-MB VALUE MASS < 1.0 NG/ML (<3.6)
[2022-08-04 17:34] LABS: CPK CREATINE PHOSPHOKINASE 78 U/L (34-145); MB/CK RELATIVE INDEX 1.28 (< OR =4)
[2022-08-04 19:13] LABS: CK-MB VALUE MASS < 1.0 NG/ML (<3.6)
[2022-08-04 19:16] LABS: CPK CREATINE PHOSPHOKINASE 74 U/L (34-145); MB/CK RELATIVE INDEX 1.35 (< OR =4)
[2022-08-04 19:50] VITALS: BP 141/75; TEMP 97.4; O2SAT 97
== END 2022-08-04 19:55 | disposition home or self-care (01) ==
LOC: M ED 14:26
DX: R07.89 Other chest pain (principal); I10 Essential (primary) hypertension; I25.2 Old myocardial infarction; E11.9 Type 2 diabetes mellitus without complications; G47.30 Sleep apnea, unspecified; Z95.5 Presence of coronary angioplasty implant and graft; Z85.3 Personal history of malignant neoplasm of breast; Z82.49 Family history of ischemic heart disease and other diseases of the circulatory system; Z88.8 Allergy status to other drugs, medicaments and biological substances; Z88.0 Allergy status to penicillin; Z91.040 Latex allergy status
CPT/HCPCS: 71045; 71275; 80048; 80076; 82550; 82553; 83690; 84439; 84484; 85025; 93005; 93041; 94760; 99285; Q9967

== ENCOUNTER → 2024-04-01 | Outpatient (CLI) | payer OTHER ==
[~2024-04-01] MED LIST changes: -ASPI81CH48; +ASPI81CH48 PO; +BRIM0.2S13 OU; +CALC1TAB63 PO; -CLOP75TA2; +CLOP75TA2 PO; +DORZ2SOL4 OU; -EZET10TA21; +EZET10TA21 PO; -METO1TAB7; +METO1TAB7 PO; +REPA140I2 SC; +TRUL0.5I SQ; +VITA-259 PO; +VITA100T59 PO
== END ==
LOC: M WHC 10:58
PROVIDERS: ATTEND Obstetrics & Gynecology
DX: Z12.31 Encounter for screening mammogram for malignant neoplasm of breast (principal); R92.313 Mammographic fatty tissue density, bilateral breasts

== ENCOUNTER 2024-06-24 09:07 | Emergency (ER) | payer MEDICARE ==
[~2024-06-24] VITALS: Ht 165.1 cm; Wt 112.6 kg
[2024-06-24 11:30] VITALS: TEMP 97.6
[2024-06-24 11:46] VITALS: BP 167/79; O2SAT 98
== END 2024-06-24 11:47 | disposition home or self-care (01) ==
LOC: M ED 09:07
DX: M25.571 Pain in right ankle and joints of right foot (principal); I25.119 Atherosclerotic heart disease of native coronary artery with unspecified angina pectoris; I25.2 Old myocardial infarction; E11.9 Type 2 diabetes mellitus without complications; F41.9 Anxiety disorder, unspecified; F32.A Depression, unspecified; Z88.0 Allergy status to penicillin; Z88.8 Allergy status to other drugs, medicaments and biological substances; Z91.040 Latex allergy status; Z79.1 Long term (current) use of non-steroidal anti-inflammatories (NSAID); Z79.4 Long term (current) use of insulin; Z79.84 Long term (current) use of oral hypoglycemic drugs; Z79.810 Long term (current) use of selective estrogen receptor modulators (SERMs); Z79.899 Other long term (current) drug therapy